=== PATIENT | female | born 1980 | race Caucasian/White ===

== ENCOUNTER 2016-10-11 16:28 | Emergency (ER) | payer BC ==
[2016-10-11 16:52] VITALS: BP 125/72
--- NOTE | 2016-10-11 17:21 | EDM.PDOC ---
ED HPI GENERAL MEDICAL PROBLEM - General Time Seen by Provider: 10/11/16 17:00 Source of Information: Reports: Patient History Limitations: Reports: No limitations - History of Present Illness INITIAL COMMENTS - FREE TEXT/NARRATIVE: according to patient she has had pain in the upper abdomen for past 1 wk. She claims that the pain was mild about 1 wk ago and since last night she has been hurting more. most of the pain is under the rib cage in the right lateral and left lateral position of the upper abdomen. Pain is of colicky type come and goes. Not asso with food intake.No fever or chills. No nausea or vomiting. No bloating. No dysuria. No dyspepsia. Pt claims that pain is worse now( but appears very comfortable in the exam room). No pain with deep breathing, no cough or productive sputum. No other complaints. Duration: Week(s): (1), Waxing/waning - Related Data Allergies Allergy/AdvReac Type Severity Reaction Status Date / Time levofloxacin Allergy Joint Pain Verified 10/11/16 16:51 Home Meds: Home Meds Hydrocodone/Acetaminophen [Hydrocodon-Acetaminoph 2.5-325] 1 each PO Q4H PRN 09/08 [History] Ondansetron [Ondansetron ODT] 4 mg PO Q4HWA 04/15/16 [History] ALPRAZolam [Alprazolam] 0.25 mg PO DAILY 10/11/16 [History] buPROPion HCl [Bupropion HCl] 150 mg PO BID 10/11/16 [History] Past Medical History - Past Health History Medical/Surgical History: Denies Medical/Surgical History Other Cardiovascular History: Hx chest pain and has had CRP but thinks it might be due to ulcer Gastrointestinal History: Reports: Other (see below) Other Gastrointestinal History: ulcers 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, 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 Musculoskeletal History: Reports: Other (see below) Other Musculoskeletal History: Joint pain due to Levofloxin Neurological History: Reports: Migraines Psychiatric History: Reports: Depression Endocrine/Metabolic History: Reports: None Hematologic History: Reports: Other (see below) Other Hematologic History: vitamin D deficiency - Infectious Disease History Infectious Disease History: Reports: Chicken pox, Influenza - Past Surgical History GI Surgical History: Reports: Appendectomy Social & Family History - Family History Family Medical History: Noncontributory - Tobacco Use Smoking Status *Q: Never Smoker Second Hand Smoke Exposure: Yes - Caffeine Use Caffeine Use: Reports: Soda - Alcohol Use Days Per Week of Alcohol Use: 0 - Recreational Drug Use Recreational Drug Use: No ED ROS GENERAL - Review of Systems Review Of Systems: See Below Constitutional: Denies: fever, chills, decreased appetite HEENT: Denies: Ear discharge, Rhinitis, Sinus problem Respiratory: Denies: Shortness of Breath, Cough, Sputum Cardiovascular: Denies: Chest pain, Lightheadedness GI/Abdominal: Reports: Abdominal pain. Denies: Black stool, Constipation, Diarrhea, Difficulty swallowing, Distension, Nausea, Vomiting : Denies: dysuria, flank pain Musculoskeletal: Denies: joint pain, joint swelling Skin: Denies: pruritis, rash Neurological: Denies: Confusion, Dizziness Psychiatric: Denies: Agitation, Anxiety Hematologic/Lymphatic: Denies: anemia ED EXAM, GENERAL - Physical Exam Exam: See Below Exam Limited By: No limitations General Appearance: alert, WD/WN, no apparent distress, other (Pt appears very comfortable and not in any distress, but rates her pain as very severe) Eye Exam: bilateral eye: EOMI, PERRL Ears: normal external exam, normal canal, hearing grossly normal, normal TMs Ear Exam: bilateral ear: auricle normal, canal normal, TM normal Nose: normal inspection, normal mucosa, no blood Throat/Mouth: Normal inspection, Normal lips, Normal teeth, Normal gums, Normal oropharynx, Normal voice, No airway compromise Head: atraumatic, normocephalic Neck: normal inspection, supple, non-tender, full range of motion Respiratory/Chest: no respiratory distress, lungs clear, normal breath sounds, no accessory muscle use, chest non-tender Cardiovascular: normal peripheral pulses, regular rate, rhythm, no edema, no gallop, no JVD, no murmur, no rub GI/Abdominal: normal bowel sounds, soft, no organomegaly, no distention, no abnormal bruit, no mass, tender (All over the upper abdomen form the right costal margin to left costal margin over the abdominal wall. No guarding or rigidity.). No: rigid, rebound Course - Vital Signs Text/Narrative:: CBC shows white count of 6.1, with normal hemoglobin 14.9. Her UA is normal. CT abdomen appears normal other than some stool seen in the transverse colon. No acute pathology seen. Pt has superficial abdominal tenderness with colicky pain , which is consistent with constipation. Pt does claim that she has been on bupropion for past 2 wks and has noted some constipation. Pt reassure that she might have nonspecific abdominal pain, but no acute pathology seen. Advised plenty of fluids orally and stool softener like Colace 100mg BID . Followup with her primary care provider in clinic later this week. Last Recorded V/S: Last Vital Signs Temp 96.5 F 10/11/16 16:51 Pulse 71 10/11/16 16:51 Resp 16 10/11/16 16:51 BP 125/72 10/11/16 16:51 Pulse Ox 98 10/11/16 16:51 - Orders/Labs/Meds Orders: Active Orders 24 hr Category Date Time Status Abdomen wo Cont [CT] Stat Exams 10/11/16 17:14 Taken Labs: Laboratory Tests 10/11/16 10/11/16 10/11/16 Range/Units 16:50 17:13 17:20 WBC 6.1 (4.0-11.0) K/uL RBC 5.02 (3.80-5.80) M/uL Hgb 14.9 (11.5-16.5) g/dL Hct 43.9 (37.0-47.0) % MCV 88 (76-96) fL MCH 29.7 (27.0-32.0) pg MCHC 33.9 (31.0-35.0) g/dL RDW 12.8 (11.0-16.0) % Plt Count 256 (150-500) K/uL MPV 11.3 H (6.0-10.0) fL Neut % (Auto) 56.5 (45.0-70.0) % Lymph % (Auto) 33.8 (20.0-40.0) % [place]estone % (Auto) 7.4 (3.0-10.0) % Eos % (Auto) 1.6 (1.0-5.0) % Baso % (Auto) 0.7 H (0.0-0.5) % Neut # 3.43 (2.00-7.50) K/uL Lymph # 2.05 (1.50-4.00) K/uL Lim[place] # 0.45 (0.20-0.80) K/uL Eos # 0.10 (0.04-0.40) K/uL Baso # 0.04 (0.02-0.10) K/uL Urine Color Yellow Urine Appearance Clear (CLEAR) Urine pH 5.0 (5.0-8.0) Ur Specific Pool >= 1.030 (1.003-1.030) Urine Protein Negative (NEGATIVE) mg/dL Urine Glucose (UA) Negative (NEGATIVE) mg/dL Urine Ketones Negative (NEGATIVE) mg/dL Urine Occult Blood Small H (NEGATIVE) Urine Nitrite Negative (NEGATIVE) Urine Bilirubin Negative (NEGATIVE) Urine Urobilinogen 0.2 (0.2-1.0) E.U./dL Ur Leukocyte Esterase Negative (NEGATIVE) Urine RBC 5-10 H /HPF Urine WBC 0-5 H /HPF Ur Epithelial Cells Few /HPF Urine Bacteria Few /HPF Urine HCG, Qual Negative (NEGATIVE) Departure - Departure Time of Disposition: 18:00 Disposition: Home, Self-Care 01 Condition: fair Clinical Impression: Colicky LUQ abdominal pain, Colicky RUQ abdominal pain Additional Instructions: CBC shows white count of 6.1, with normal hemoglobin 14.9. Her UA is normal. CT abdomen appears normal other than some stool seen in the transverse colon. No acute pathology seen. Pt has superficial abdominal tenderness with colicky pain , which is consistent with constipation. Pt does claim that she has been on bupropion for past 2 wks and has noted some constipation. Pt reassure dthat she might have nonspecific abdominal pain, but no acute pathology seen. Advised plenty of fluids orally and stool softener like Colace 100mg BID . Followup with her primary care provider in clinic later this week. - Problem List & Annotations (1) Colicky LUQ abdominal pain SNOMED Code(s): 917478034, [id number] Code(s): R10.12 - LEFT UPPER QUADRANT PAIN Status: Acute Current Visit: Yes (2) Colicky RUQ abdominal pain SNOMED Code(s): 735913970, 980774414 Code(s): R10.11 - RIGHT UPPER QUADRANT PAIN Status: Acute Current Visit: Yes - Problem List Review Problem List Initiated/Reviewed/Updated: Yes - My Orders Last 24 Hours: My Active Orders 10/11/16 17:14 Abdomen wo Cont [CT] Stat - Assessment/Plan Last 24 Hours: My Active Orders 10/11/16 17:14 Abdomen wo Cont [CT] Stat Assessment:: Nonspecific abdominal colic Plan: CBC shows white count of 6.1, with normal hemoglobin 14.9. Her UA is normal. CT abdomen appears normal other than some stool seen in the transverse colon. No acute pathology seen. Pt has superficial abdominal tenderness with colicky pain , which is consistent with constipation. Pt does claim that she has been on bupropion for past 2 wks and has noted some constipation. Pt reassure that she might have nonspecific abdominal pain, but no acute pathology seen. Advised plenty of fluids orally and stool softener like Colace 100mg BID . Followup with her primary care provider in clinic later this week.
--- NOTE | 2016-10-11 19:20 | CT ---
DATE OF SERVICE: 10/11/16 CLINICAL DATA: upper abdominal pain UNENHANCED ABDOMEN CT: Multislice acquisition through the abdomen without IV or oral contrast was performed. Comparison is made to a prior unenhanced abdomen and pelvic CT dated 05/16/2016. The lung bases are clear. The unenhanced liver appears normal. The gallbladder appears normal. The spleen appears normal. The pancreas appears normal. The right and left adrenals appear normal. The right and left kidneys appear normal. No nephrocalcinosis or nephrolithiasis. No hydronephrosis or hydroureter. The appendix is absent and there are surgical changes adjacent to the cecum, most likely related to prior appendectomy. There is a moderate amount of stool noted within the visualized colon. No free air. No free fluid. No dilated loops of bowel. No adenopathy. No aortic aneurysm. There is a small umbilical hernia containing fat. There are multiple loops of small bowel within the left abdomen with apparent mural thickening. This is probably related to nondistension. Enteritis should at least be considered. No other significant findings. [id number] MTDD
== END 2016-10-11 18:15 | disposition home or self-care (01) ==
LOC: LB.ED 16:28
DX: R10.11 Right upper quadrant pain (principal); R10.12 Left upper quadrant pain; G43.909 Migraine, unspecified, not intractable, without status migrainosus; F32.9 Major depressive disorder, single episode, unspecified; Z88.1 Allergy status to other antibiotic agents; Z79.899 Other long term (current) drug therapy; Z90.49 Acquired absence of other specified parts of digestive tract
CPT/HCPCS: 36415; 74150; 81001; 81025; 85025; 99284-25

== ENCOUNTER 2018-01-17 21:47 | Emergency (ER) | payer BC ==
[2018-01-17] MEDS ORDERED: Ondansetron 4 MG Tab.DIS PO ONE (22:18)
[2018-01-17] MEDS ORDERED: Ketorolac 60 MG/2 ML SDV IM ONE (22:18)
[2018-01-17 22:25] VITALS: BP 130/84
[2018-01-17] MEDS ORDERED: Ondansetron 4 MG Tab.DIS ONE (22:45)
--- NOTE | 2018-01-18 01:23 | ER ---
DATE OF SERVICE: 01/17/2018 HPI: A 37-year-old lady here with her with complaints of a migraine headache that she states has been ongoing for 10 days. She does have Maxalt which she has taken occasionally at home, but she states it does not seem to help her. She also takes Excedrin Migraine on a more regular basis as needed. She states she does not get headaches as frequently anymore she used to, but this one is lasting longer. The patient is nauseated, but has not been vomiting. She rates her pain currently at 5/10. OBJECTIVE: GENERAL APPEARANCE: The patient is awake and alert. She is sitting on the exam table. VITAL SIGNS: Reviewed. Blood pressure 130/84, pulse 76, she is afebrile, respirations 16. Physical exam, eyes, pupils equal, round, and reactive to light. NECK: Supple. LUNGS: Clear. CARDIAC: Heart sounds distinct. SKIN: Warm and dry. DIAGNOSIS: Migraine headache. TREATMENT PLAN: Toradol 60 mg given IM, and we gave the patient Zofran 8 mg sublingual. We monitored her for about 30 minutes, and at this point, she states her symptoms are significantly improving. We will now discharge the patient to go home with her . She is to get a good night's sleep. We will give her a few more Zofran tablets to take as needed, and I advised the patient to continue using Excedrin Migraine. She also should consider the chiropractic treatment tomorrow if her headache has not resolved. Followup is otherwise p.r.n. MARY/MODL /[id number] MARCUS
== END 2018-01-17 23:00 | disposition home or self-care (01) ==
LOC: LB.ED 21:47
DX: G43.909 Migraine, unspecified, not intractable, without status migrainosus (principal)
CPT/HCPCS: 96372; 99283-25; A9270-GY; J1885

== ENCOUNTER 2020-12-02 16:53 | Emergency (ER) | payer BC ==
[2020-12-02 17:07] VITALS: BP 142/85
[2020-12-02] MEDS ORDERED: Ketorolac 60 MG/2 ML SDV IVPUSH ONE (17:24)
[2020-12-02] MEDS ORDERED: Prochlorperazine 10 MG in Sodium Chloride 0.9% 50 ML IV ONE (17:25)
[2020-12-02] MEDS ORDERED: diphenhydrAMINE 50 MG/ML SDV IVPUSH ONE (17:25)
[2020-12-02] MEDS ORDERED: Sodium Chloride 0.9% 1,000 ML IV SCH (17:30)
[2020-12-02] MEDS ORDERED: Ketorolac 30 MG/ML SDV ONE (17:36)
[2020-12-02] MEDS ORDERED: Prochlorperazine 10 MG/2 ML SDV ONE (17:37)
[2020-12-02] MEDS ORDERED: diphenhydrAMINE 50 MG/ML SDV ONE (17:37)
--- NOTE | 2020-12-02 17:42 | EDM.PDOC ---
ED HPI GENERAL MEDICAL PROBLEM - General Chief Complaint: General Stated Complaint: MIGRAINE Time Seen by Provider: 12/02/20 17:20 Source of Information: Reports: Patient History Limitations: Reports: No Limitations - History of Present Illness INITIAL COMMENTS - FREE TEXT/NARRATIVE: 39 year old female with PMH migraines presents to ED with migraine since waking this AM. + photophobia, n/v. States that this is a typical migraine for her, however none of her medications (zofran, hydrocodone, excedrin) have worked for the pain. Denies any fever, CP, SOB, cough, abdominal pain, visual changes. Location: Reports: Head Quality: Reports: Throbbing Improves with: Reports: None Worsens with: Reports: None Associated Symptoms: Reports: Nausea/Vomiting Bilateral Headache Pain Score (Numeric/FACES): 6 - Related Data Allergies Allergy/AdvReac Type Severity Reaction Status Date / Time levofloxacin Allergy Joint Pain Verified 12/02/20 17:02 Home Meds: Home Meds buPROPion HCL [Bupropion HCl] 150 mg PO BID 10/11/16 [History] Hydrocodone/Acetaminophen [Xodol 7.5-300 mg Tablet] 7.5 mg PO ASDIRECTED 12/02/20 [History] Sertraline HCl 25 mg PO DAILY 12/02/20 [History] Past Medical History - Past Health History Medical/Surgical History: Denies Medical/Surgical History Other Cardiovascular History: Hx chest pain and has had CRP but thinks it might be due to ulcer Gastrointestinal History: Reports: Other (See Below) Other Gastrointestinal History: ulcers 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, 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 Musculoskeletal History: Reports: Other (See Below) Other Musculoskeletal History: Joint pain due to Levofloxin Neurological History: Reports: Migraines Psychiatric History: Reports: Depression Endocrine/Metabolic History: Reports: None Hematologic History: Reports: Other (See Below) Other Hematologic History: vitamin D deficiency - Infectious Disease History Infectious Disease History: Reports: Chicken Pox, Influenza - Past Surgical History GI Surgical History: Reports: Appendectomy Social & Family History - Family History Family Medical History: No Pertinent Family History - Caffeine Use Caffeine Use: Reports: None ED ROS GENERAL - Review of Systems Review Of Systems: See Below Constitutional: Reports: No Symptoms HEENT: Reports: No Symptoms Respiratory: Reports: No Symptoms Cardiovascular: Reports: No Symptoms Endocrine: Reports: No Symptoms GI/Abdominal: Reports: No Symptoms : Reports: No Symptoms Musculoskeletal: Reports: No Symptoms Skin: Reports: No Symptoms Neurological: Reports: Headache. Denies: Confusion, Dizziness Psychiatric: Reports: No Symptoms Immunologic: Reports: Seasonal Allergy ED EXAM, GENERAL - Physical Exam Exam: See Below Exam Limited By: No Limitations General Appearance: Alert, No Apparent Distress Eye Exam: Bilateral Eye: Normal Inspection, PERRL Ears: Normal External Exam, Normal Canal, Hearing Grossly Normal, Normal TMs Ear Exam: Bilateral Ear: TM normal Nose: Normal Inspection, Normal Mucosa, No Blood Throat/Mouth: Normal Inspection, Normal Lips, Normal Teeth, Normal Gums, Normal Oropharynx, Normal Voice, No Airway Compromise Head: Atraumatic Neck: Normal Inspection, Non-Tender, Full Range of Motion Respiratory/Chest: No Respiratory Distress, Lungs Clear, Normal Breath Sounds, No Accessory Muscle Use Cardiovascular: Normal Peripheral Pulses, Regular Rate, Rhythm, No Edema, No JVD, No Murmur GI/Abdominal: Non-Tender Back Exam: Normal Inspection, Full Range of Motion Extremities: Normal Inspection, Normal Range of Motion, Non-Tender, No Pedal Edema, Normal Capillary Refill Neurological: Alert, Oriented, Normal Cognition, Normal Gait, No Motor/Sensory Deficits Psychiatric: Normal Affect, Normal Mood Skin Exam: Warm, Dry, Intact, Normal Color, No Rash Lymphatic: No Adenopathy Course - Vital Signs Last Recorded V/S: Last Vital Signs Temp 98 F 12/02/20 17:04 Pulse 71 12/02/20 17:04 Resp 16 12/02/20 17:04 BP 142/85 H 12/02/20 17:04 Pulse Ox 97 12/02/20 17:04 - Orders/Labs/Meds Meds: Medications Discontinued Medications Generic Name Dose Route Start Last Admin Trade Name Azaelq PRN Reason Stop Dose Admin Diphenhydramine HCl 25 mg 12/02/20 17:25 12/02/20 17:38 Diphenhydramine 50 Mg/Ml Sdv IVPUSH 12/02/20 17:26 25 mg ONETIME ONE Administration Diphenhydramine HCl Confirm 12/02/20 17:37 12/02/20 17:31 Diphenhydramine 50 Mg/Ml Sdv Administered 12/02/20 17:38 Not Given Dose 50 mg .ROUTE .STK-MED ONE Sodium Chloride 1,000 mls @ 999 mls/hr 12/02/20 17:30 12/02/20 17:31 Normal Saline IV 999 mls/hr ASDIRECTED JUAN Administration Prochlorperazine Edisylate 10 52 mls @ 150 mls/hr 12/02/20 17:25 12/02/20 17:35 mg/ Sodium Chloride IV 12/02/20 17:45 150 mls/hr ONETIME ONE Administration Ketorolac Tromethamine 15 mg 12/02/20 17:24 12/02/20 17:32 Ketorolac 60 Mg/2 Ml Sdv IVPUSH 12/02/20 17:25 15 mg ONETIME ONE Administration Ketorolac Tromethamine Confirm 12/02/20 17:36 12/02/20 17:30 Ketorolac 30 Mg/Ml Sdv Administered 12/02/20 17:37 Not Given Dose 30 mg .ROUTE .STK-MED ONE Prochlorperazine Edisylate Confirm 12/02/20 17:37 12/02/20 17:31 Prochlorperazine 10 Mg/2 Ml Sdv Administered 12/02/20 17:38 Not Given Dose 10 mg .ROUTE .STK-MED ONE Departure - Departure Time of Disposition: 18:15 Disposition: Home, Self-Care 01 Clinical Impression: Migraine headache Qualifiers: Migraine type: other Status migrainosus presence: with status migrainosus Intractability: not intractable Qualified Code(s): G43.801 - Other migraine, not intractable, with status migrainosus - Discharge Information *PRESCRIPTION DRUG MONITORING PROGRAM REVIEWED*: Not Applicable *COPY OF PRESCRIPTION DRUG MONITORING REPORT IN PATIENT KINGS: Not Applicable Instructions: Migraine Headache Referrals: PCP,None [Primary Care Provider] - Forms: ED Department Discharge Additional Instructions: Drink plenty of fluids, rest. Return to ED for any increased or new concerning symptoms. Follow up with your PMD as needed. Sepsis Event Note (ED) - Evaluation Sepsis Screening Result: No Definite Risk - Focused Exam Vital Signs: Vital Signs Temp Pulse Resp BP Pulse Ox 12/02/20 17:04 98 F 71 16 142/85 H 97
[2020-12-02 17:45] VITALS: PULSE 71
== END 2020-12-02 18:26 | disposition home or self-care (01) ==
LOC: LB.ED 16:53
DX: G43.801 Other migraine, not intractable, with status migrainosus (principal); Z88.1 Allergy status to other antibiotic agents
CPT/HCPCS: 96365; 96375; 99283; J0780; J1200; J1885; J7030; 99284

== ENCOUNTER 2021-05-25 16:03 | Emergency (ER) | payer BC ==
[2021-05-25] MEDS ORDERED: Sodium Chloride 0.9% 10 ML Syringe FLUSH PRN (16:39)
[2021-05-25] MEDS: Ondansetron 4 MG/2 ML SDV IVPUSH PRN (16:47)
[2021-05-25] MEDS: Ketorolac 30 MG/ML SDV IVPUSH ONE (16:49)
[2021-05-25] MEDS: diphenhydrAMINE 50 MG/ML SDV IVPUSH ONE (16:52)
[2021-05-25] MEDS: Sodium Chloride 0.9% 1,000 ML IV SCH (16:55)
[2021-05-25 17:14] VITALS: BP 116/81; PULSE 79
[2021-05-25] MEDS: diphenhydrAMINE 50 MG/ML SDV ONE (17:14)
[2021-05-25] MEDS: Ondansetron 4 MG/2 ML SDV ONE (17:15)
[2021-05-25] MEDS: Ketorolac 30 MG/ML SDV ONE (17:15)
--- NOTE | 2021-05-25 17:59 | EDM.PDOC ---
ED HPI GENERAL MEDICAL PROBLEM - General Chief Complaint: Headache Stated Complaint: MIGRAINE Time Seen by Provider: 05/25/21 16:30 Source of Information: Reports: Patient, RN Notes Reviewed History Limitations: Reports: No Limitations - History of Present Illness INITIAL COMMENTS - FREE TEXT/NARRATIVE: This patient presents to the emergency department for evaluation of migraine headache. She states it started at about 2 AM and she got up and took some hydrocodone. She states that this did not help. She started to have some nausea and took some Zofran which she vomited up. She states that she has had a continued headache and vomiting throughout the day. She has not tried any other medications at home. She has been sipping on fluids but has not had an appetite. She denies other symptoms or concerns. She states that this headache feels very much like her "typical" migraine headache. Headache Pain Score (Numeric/FACES): 7 - Related Data Allergies Allergy/AdvReac Type Severity Reaction Status Date / Time levofloxacin Allergy Joint Pain Verified 12/02/20 17:02 Home Meds: Home Meds buPROPion HCL [Bupropion HCl] 150 mg PO BID 10/11/16 [History] Hydrocodone/Acetaminophen [Xodol 7.5-300 mg Tablet] 7.5 mg PO ASDIRECTED 12/02/20 [History] Sertraline HCl 25 mg PO DAILY 12/02/20 [History] Past Medical History - Past Health History Medical/Surgical History: Denies Medical/Surgical History Other Cardiovascular History: Hx chest pain and has had CRP but thinks it might be due to ulcer Gastrointestinal History: Reports: Other (See Below) Other Gastrointestinal History: ulcers [employer] History: Reports: Endometrial Ablation, 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 Musculoskeletal History: Reports: Other (See Below) Other Musculoskeletal History: Joint pain due to Levofloxin Neurological History: Reports: Migraines Psychiatric History: Reports: Depression Endocrine/Metabolic History: Reports: None Hematologic History: Reports: Other (See Below) Other Hematologic History: vitamin D deficiency - Infectious Disease History Infectious Disease History: Reports: Chicken Pox, Influenza - Past Surgical History Cardiovascular Surgical History: Reports: None GI Surgical History: Reports: Appendectomy Neurological Surgical History: Reports: None Musculoskeletal Surgical History: Reports: None Social & Family History - Family History Family Medical History: No Pertinent Family History - Caffeine Use Caffeine Use: Reports: None ED ROS GENERAL - Review of Systems Review Of Systems: Comprehensive ROS is negative, except as noted in HPI. - Physical Exam Exam: See Below Exam Limited By: No Limitations General Appearance: Alert, No Apparent Distress Eye Exam: Bilateral Eye: PERRL, Other (No photophobia) Ears: Normal External Exam Throat/Mouth: Normal Inspection Head Exam: Atraumatic, Normocephalic. No: Scalp Tenderness, Facial Swelling, Sinus Tenderness Neck: Normal Inspection, Full Range of Motion Respiratory/Chest: No Respiratory Distress, Lungs Clear, Normal Breath Sounds, No Accessory Muscle Use Neuro Exam (Abbreviated): Alert, Oriented, Normal Cognition, Other (Patient states headache is bilateral frontal area and goes around to occipital area in a "halo" pattern.) Extremities: Normal Inspection Psychiatric: Normal Affect, Normal Mood Skin Exam: Warm, Dry, Intact Course - Vital Signs Last Recorded V/S: Last Vital Signs Temp 37.4 C 05/25/21 16:24 Pulse 79 05/25/21 16:24 Resp 18 05/25/21 16:24 BP 116/81 05/25/21 16:24 Pulse Ox 95 05/25/21 16:24 - Orders/Labs/Meds Orders: Active Orders 24 hr Category Date Time Status Ondansetron [Zofran] Med 05/25/21 16:38 Active 4 mg IVPUSH Q4H PRN Sodium Chloride 0.9% [Normal Saline] 1,000 ml Med 05/25/21 16:45 Active IV ASDIRECTED Sodium Chloride 0.9% [Saline Flush] Med 05/25/21 16:39 Active 10 ml FLUSH ASDIRECTED PRN Saline Lock Insert [OM.PC] Routine Oth 05/25/21 16:39 Ordered Medication Orders Sodium Chloride (Normal Saline) 1,000 mls @ 999 mls/hr IV ASDIRECTED JUAN Last Admin: 05/25/21 16:55 Dose: 999 mls/hr Documented by: MICHELL Ondansetron HCl (Ondansetron 4 Mg/2 Ml Sdv) 4 mg IVPUSH Q4H PRN PRN Reason: Nausea/Vomiting Last Admin: 05/25/21 16:47 Dose: 4 mg Documented by: MICHELL Sodium Chloride (Sodium Chloride 0.9% 10 Ml Syringe) 10 ml FLUSH ASDIRECTED PRN PRN Reason: Keep Vein Open Meds: Medications Generic Name Dose Route Start Last Admin Trade Name Azaelq PRN Reason Stop Dose Admin Sodium Chloride 1,000 mls @ 999 mls/hr 05/25/21 16:45 05/25/21 16:55 Normal Saline IV 999 mls/hr ASDIRECTED JUAN Administration Ondansetron HCl 4 mg 05/25/21 16:38 05/25/21 16:47 Ondansetron 4 Mg/2 Ml Sdv IVPUSH 4 mg Q4H PRN Administration Nausea/Vomiting Sodium Chloride 10 ml 05/25/21 16:39 Sodium Chloride 0.9% 10 Ml Syringe FLUSH ASDIRECTED PRN Keep Vein Open Discontinued Medications Generic Name Dose Route Start Last Admin Trade Name Azaelq PRN Reason Stop Dose Admin Diphenhydramine HCl 50 mg 05/25/21 16:38 05/25/21 16:52 Diphenhydramine 50 Mg/Ml Sdv IVPUSH 05/25/21 16:39 50 mg ONETIME ONE Administration Diphenhydramine HCl Confirm 05/25/21 16:51 05/25/21 17:14 Diphenhydramine 50 Mg/Ml Sdv Administered 05/25/21 16:52 Not Given Dose 50 mg .ROUTE .STK-MED ONE Ketorolac Tromethamine 30 mg 05/25/21 16:38 05/25/21 16:49 Ketorolac 30 Mg/Ml Sdv IVPUSH 05/25/21 16:39 30 mg ONETIME ONE Administration Ketorolac Tromethamine Confirm 05/25/21 16:51 05/25/21 17:15 Ketorolac 30 Mg/Ml Sdv Administered 05/25/21 16:52 Not Given Dose 30 mg .ROUTE .STK-MED ONE Ondansetron HCl Confirm 05/25/21 16:51 05/25/21 17:15 Ondansetron 4 Mg/2 Ml Sdv Administered 05/25/21 16:52 Not Given Dose 4 mg .ROUTE .STK-MED ONE - Re-Assessments/Exams Free Text/Narrative Re-Assessment/Exam: This patient presents to the emergency department for evaluation of a headache. She states that it is like her usual migraine headache. She denies any new symptoms and attempted her usual treatments at home prior to arrival without success. The examination was found to be normal she denies any photophobia however she has had vomiting. There was a nonfocal neurologic exam with no signs concerning to infectious etiologies. Clinically the life-threatening diagnoses of subarachnoid hemorrhage and meningitis or encephalitis were able to be excluded. I also had no concerns for metabolic disorders which may produce a headache. After interventions as noted above, she reported excellent improvement, rating her pain at a 3 and was able to be discharged home. Patient was instructed to follow-up with her primary care provider in 2 to 3 days as needed or to return to the emergency department should she have a headache that gets any worse. Patient was stable at the time of discharge. 05/25/21 17:57 Departure - Departure Time of Disposition: 18:00 Disposition: Home, Self-Care 01 Condition: Good Clinical Impression: Migraine Migraine Qualifiers: Migraine type: other Status migrainosus presence: with status migrainosus Intractability: not intractable Qualified Code(s): G43.801 - Other migraine, not intractable, with status migrainosus Migraine Qualifiers: Migraine type: without aura Status migrainosus presence: without status migrainosus Intractability: not intractable Qualified Code(s): G43.009 - Migraine without aura, not intractable, without status migrainosus - Discharge Information *PRESCRIPTION DRUG MONITORING PROGRAM REVIEWED*: No *COPY OF PRESCRIPTION DRUG MONITORING REPORT IN PATIENT KINGS: No Instructions: Migraine Headache, [id number] Referrals: Nish Swann MD [Primary Care Provider] - Sepsis Event Note (ED) - Evaluation Sepsis Screening Result: No Definite Risk - Focused Exam Vital Signs: Vital Signs Temp Pulse Resp BP Pulse Ox 05/25/21 16:24 37.4 C 79 18 116/81 95 - My Orders Last 24 Hours: My Active Orders 05/25/21 16:38 Ondansetron [Zofran] 4 mg IVPUSH Q4H PRN 05/25/21 16:39 Sodium Chloride 0.9% [Saline Flush] 10 ml FLUSH ASDIRECTED PRN Saline Lock Insert [OM.PC] Routine 05/25/21 16:45 Sodium Chloride 0.9% [Normal Saline] 1,000 ml IV ASDIRECTED - Assessment/Plan Last 24 Hours: My Active Orders 05/25/21 16:38 Ondansetron [Zofran] 4 mg IVPUSH Q4H PRN 05/25/21 16:39 Sodium Chloride 0.9% [Saline Flush] 10 ml FLUSH ASDIRECTED PRN Saline Lock Insert [OM.PC] Routine 05/25/21 16:45 Sodium Chloride 0.9% [Normal Saline] 1,000 ml IV ASDIRECTED
== END 2021-05-25 18:05 | disposition home or self-care (01) ==
LOC: LB.ED 16:03
DX: G43.009 Migraine without aura, not intractable, without status migrainosus (principal); G43.801 Other migraine, not intractable, with status migrainosus; Z88.1 Allergy status to other antibiotic agents; Z79.899 Other long term (current) drug therapy
CPT/HCPCS: 96374; 96375; 99283; J1200; J1885; J2405; J7030

== ENCOUNTER 2022-01-24 22:03 | Emergency (ER) | payer BC ==
[2022-01-24 22:30] VITALS: BP 138/88; PULSE 80
[2022-01-25 00:07] LABS: ESTIMATED GFR 89 mL/min (>60)
== END 2022-01-25 00:30 | disposition home or self-care (01) ==
LOC: LB.ED 22:03
DX: R45.851 Suicidal ideations (principal); F32.A Depression, unspecified; Z88.1 Allergy status to other antibiotic agents; Z79.899 Other long term (current) drug therapy
CPT/HCPCS: 36415; 80053; 80307; 81025; 85025; 99283; 99284

== ENCOUNTER 2023-01-15 09:55 | Emergency (ER) | payer BC ==
[2023-01-15 10:10] VITALS: BP 131/87; PULSE 83
[2023-01-15] MEDS ORDERED: diphenhydrAMINE 50 MG/ML SDV IVPUSH ONE (10:29)
[2023-01-15] MEDS ORDERED: Ketorolac 30 MG/ML SDV IVPUSH ONE (10:29)
[2023-01-15] MEDS ORDERED: Prochlorperazine 10 MG in Sodium Chloride 0.9% 50 ML IV ONE (10:29)
[2023-01-15] MEDS ORDERED: Sodium Chloride 0.9% 1,000 ML IV SCH (10:30)
[2023-01-15 11:34] LABS: APPEARANCE,URINE CLEAR (CLEAR); BILIRUBIN,URINE NEGATIVE (NEGATIVE); COLOR,URINE YELLOW; GLUCOSE,URINE NEGATIVE (NEGATIVE); KETONES,URINE NEGATIVE (NEGATIVE); LEUKOCYTE ESTERASE,URINE NEGATIVE (NEGATIVE); NITRITE,URINE NEGATIVE (NEGATIVE); OCCULT BLOOD,URINE NEGATIVE (NEGATIVE); PROTEIN,URINE NEGATIVE (NEGATIVE); UROBILINOGEN,URINE 0.2 E.U./dL (0.2-1.0)
[2023-01-15] MEDS ORDERED: Ketorolac 30 MG/ML SDV ONE (11:40)
[2023-01-15] MEDS ORDERED: diphenhydrAMINE 50 MG/ML SDV ONE (11:40)
[2023-01-15] MEDS ORDERED: Prochlorperazine 10 MG/2 ML SDV ONE (11:40)
== END 2023-01-15 18:00 | disposition home or self-care (01) ==
LOC: LB.ED 09:55
DX: G43.801 Other migraine, not intractable, with status migrainosus (principal); Z88.1 Allergy status to other antibiotic agents
CPT/HCPCS: 81003; 81025; 96374; 96375; 99283; 99284-25; J0780; J1200; J1885; J3490